=== PATIENT | male | born 2005 | race Caucasian/White ===

== ENCOUNTER 2023-04-06 01:22 | Emergency (ER) | payer OTHER ==
[2023-04-06 01:30] VITALS: BP 144/90; PULSE 87; RESP 20; TEMP 98.3; BMI 33.9
[2023-04-06] MEDS ORDERED: FAMOTIDINE 20 MG TABLET PO ONE (02:23)
[2023-04-06] MEDS ORDERED: diphenhydrAMINE HCL 25 MG CAPSULE (FP) PO ONE ×2 (02:23→02:24)
[2023-04-06] MEDS ORDERED: FAMOTIDINE 20 MG TABLET ONE (02:25)
[2023-04-06] MEDS ORDERED: ASPIRIN 81 MG CHEWABLE TABLETS PO ONE (03:30)
== END 2023-04-06 03:29 | disposition home or self-care (01) ==
LOC: JER 01:22
DX: R13.10 Dysphagia, unspecified (principal); R07.0 Pain in throat
CPT/HCPCS: 87651; 99283-25

== ENCOUNTER 2023-08-26 23:56 | Emergency (ER) | payer OTHER ==
[2023-08-27 00:18] VITALS: BP 127/85; PULSE 71; RESP 18; TEMP 98; BMI 30.8
[2023-08-27] MEDS ORDERED: ACETAMINOPHEN 325 MG TABLET (FP) ONE (01:33)
[2023-08-27] MEDS ORDERED: LIDOCAINE 4% PATCH TP ONE (01:33)
[2023-08-27] MEDS: LIDOCAINE 4% PATCH TP ONE (01:38)
[2023-08-27] MEDS: ACETAMINOPHEN 500 MG TABLET (FP) PO ONE (01:38)
[2023-08-27] MEDS ORDERED: LIDOCAINE PATCH REMOVAL MC SCH (22:00)
== END 2023-08-27 01:55 | disposition home or self-care (01) ==
LOC: JER 23:56
DX: R51.9 Headache, unspecified (principal); M54.2 Cervicalgia; V43.52XA Car driver injured in collision with other type car in traffic accident, initial encounter
CPT/HCPCS: 99283-25